=== PATIENT | male | born 1990 | race Caucasian/White ===

== ENCOUNTER 2017-03-26 16:06 | Emergency (ER) | payer OTHER ==
[~2017-03-26] VITALS: Ht 182.9 cm; Wt 94.3 kg
--- NOTE | 2017-03-26 17:12 | REP ---
Clinical: Trauma. Technique: AP, lateral, bilateral oblique views right foot . Findings: The osseous structures and joint spaces are intact and normal. There is no evidence for acute fracture or dislocation. Surrounding soft tissues are unremarkable. No subcutaneous emphysema or radiodense foreign body. Impression: No acute fracture or dislocation. Signed by Quintin Sanderson MD 03/26/2017 05:04 P
[2017-03-26] MEDS ORDERED: NORCO, ANEXSIA 5/325MG TABLET (HYDROcodone/ACETAMINOPHEN) PO ONE (17:15)
[2017-03-26] MEDS ORDERED: HYDR-3713 PO (17:16)
[2017-03-26 17:42] VITALS: BP 129/72
== END 2017-03-26 17:42 | disposition home or self-care (01) ==
LOC: EDBD 16:06 → M ED 17:35
DX: S90.31XA Contusion of right foot, initial encounter (principal); W23.1XXA Caught, crushed, jammed, or pinched between stationary objects, initial encounter; Y92.89 Other specified places as the place of occurrence of the external cause; Y93.89 Activity, other specified; Y99.0 Civilian activity done for income or pay; F17.200 Nicotine dependence, unspecified, uncomplicated

== ENCOUNTER 2017-08-18 09:32 | Emergency (ER) | payer OTHER ==
[~2017-08-18] VITALS: Ht 180.3 cm; Wt 93.2 kg
[~2017-08-18 09:32] MED LIST: HYDR-3713 PO
[2017-08-18] MEDS ORDERED: WELLTAB38 PO (09:40)
[2017-08-18] MEDS ORDERED: DEPA250T32 PO (09:40)
[2017-08-18] MEDS ORDERED: KETOROLAC 60 MG/2 ML VIAL (J1885) IM ONE (10:15)
--- NOTE | 2017-08-18 11:22 | REP ---
Lumbar spine series: Five views. History: Trauma. Comparison study: November 02, 2016. Findings: Lumbar vertebral body heights are preserved. No fracture or collapse is seen. There is mild disc space narrowing at L4-5 and early discogenic spurring is seen at L5-S1. These findings are unchanged. There is a defect in the pars interarticularis on the left side at L5. No spondylolisthesis is seen. There is some sclerosis bilaterally. Question pars defect on the right. Sacrum and SI joints are intact. Psoas margins are symmetric. Impression: No traumatic abnormality noted. Unilateral left-sided pars interarticularis defect at L5 without spondylolisthesis. Question pars defect on the right. Some degenerative changes. Signed by Luis Miguel Sosa MD 08/18/2017 02:12 P
[2017-08-18] MEDS ORDERED: TRAM50TA2 PO (11:32)
[2017-08-18] MEDS ORDERED: ROBA500T PO (11:32)
[2017-08-18 12:07] VITALS: BP 125/76
== END 2017-08-18 11:56 | disposition home or self-care (01) ==
LOC: M ED 09:32
DX: S39.012A Strain of muscle, fascia and tendon of lower back, initial encounter (principal); X50.9XXA Other and unspecified overexertion or strenuous movements or postures, initial encounter; Y92.59 Other trade areas as the place of occurrence of the external cause; Y93.89 Activity, other specified; Y99.0 Civilian activity done for income or pay; M47.817 Spondylosis without myelopathy or radiculopathy, lumbosacral region; R45.4 Irritability and anger; M51.9 Unspecified thoracic, thoracolumbar and lumbosacral intervertebral disc disorder; F17.210 Nicotine dependence, cigarettes, uncomplicated; Z79.899 Other long term (current) drug therapy
CPT/HCPCS: 72110; 96372; 99282; J1885; J3360

== ENCOUNTER 2017-08-31 19:57 | Emergency (ER) | payer OTHER ==
[~2017-08-31] VITALS: Ht 180.3 cm; Wt 90.8 kg
[2017-08-31 19:57] VITALS: BP 155/82
[~2017-08-31 19:57] MED LIST changes: +DEPA250T32 PO; +ROBA500T PO; +TRAM50TA2 PO; +WELLTAB38 PO
== END 2017-09-01 00:41 | disposition left against medical advice (07) ==
LOC: M ED 19:57
DX: Z53.21 Procedure and treatment not carried out due to patient leaving prior to being seen by health care provider (principal)

== ENCOUNTER 2017-09-20 12:36 | Emergency (ER) | payer OTHER ==
[~2017-09-20] VITALS: Ht 180.3 cm; Wt 92.3 kg
[2017-09-20] MEDS ORDERED: DIVA250T (12:45)
[2017-09-20] MEDS ORDERED: CHERSYP3 PO (15:02)
[2017-09-20] MEDS ORDERED: TESS100C PO (15:08)
[2017-09-20 15:17] VITALS: BP 158/80
== END 2017-09-20 15:17 | disposition home or self-care (01) ==
LOC: M ED 12:36
DX: J06.9 Acute upper respiratory infection, unspecified (principal); F17.210 Nicotine dependence, cigarettes, uncomplicated; R45.4 Irritability and anger; Z79.899 Other long term (current) drug therapy

== ENCOUNTER → 2018-01-09 | Outpatient (REF) | payer OTHER | LOC: M LAB REF 09:50 | DX: J02.9 Acute pharyngitis, unspecified (principal) | CPT/HCPCS: 87081 ==

== ENCOUNTER 2018-01-13 02:32 | Emergency (ER) | payer OTHER ==
[2018-01-13] MEDS: PSEUDOEPHEDRINE 30 MG TAB PO (04:00)
[2018-01-13] MEDS: KETOROLAC 60 MG/2 ML VIAL (J1885) IM (04:00)
[2018-01-13] MEDS: AUGMENTIN 875 MG TAB PO (04:00)
[2018-01-13] MEDS: NORCO 5/325MG TABLET (BULK FOR ED) PO (05:00)
== END 2018-01-13 05:12 | disposition home or self-care (01) ==
LOC: M ED 02:32
DX: J01.00 Acute maxillary sinusitis, unspecified (principal)
CPT/HCPCS: J1885